=== PATIENT | female | born 1950 | race African-American/Black ===

== ENCOUNTER 2023-12-08 15:20 | Emergency (ER) | payer MEDICARE, MEDICAID ==
[~2023-12-08] VITALS: Ht 160 cm; Wt 52.0 kg
[~2023-12-08 15:20] MED LIST: ASPI-1406 MT; CLOP-31 MT; LIP40 MT
[2023-12-08 15:47] VITALS: BP 145/70; PULSE 93; RESP 20; TEMP 97.6; O2SAT 100
[2023-12-08] MEDS ORDERED: AMOX1TAB16 MT (18:50)
== END 2023-12-08 19:04 | disposition home or self-care (01) ==
LOC: ER 15:20
DX: K05.10 Chronic gingivitis, plaque induced (principal); E78.00 Pure hypercholesterolemia, unspecified; I10 Essential (primary) hypertension; I25.2 Old myocardial infarction
CPT/HCPCS: 99283

== ENCOUNTER 2024-04-11 11:15 | Emergency (ER) | payer MEDICARE, MEDICAID ==
[~2024-04-11] VITALS: Ht 152.4 cm; Wt 55.0 kg
[~2024-04-11 11:15] MED LIST changes: +AMOX1TAB16 MT
[2024-04-11 11:23] VITALS: O2SAT 100
[2024-04-11 11:50] LABS: BASOPHILS % 0.3 % (0.0-2.0); EOSINOPHILS % 0.3 % (0.0-5.0); HEMATOCRIT. 32.2 % (36.0-48.0); HEMOGLOBIN. 10.2 g/dL (12.0-16.0); LYMPHOCYTES % 12.2 % (20.0-50.0); MEAN CORPUSCULAR HEMOGLOBIN 27.9 pg (28.0-32.0); MEAN CORPUSCULAR HGB CONC 31.6 g/dL (31.0-37.0); MEAN CORPUSCULAR VOLUME 88.3 fL (81.0-99.0); MEAN PLATELET VOLUME 6.7 fl (7.4-10.4); MONOCYTES % 5.6 % (2.0-8.0); NEUTROPHILS % 81.6 % (40.0-76.0); PLATELET 447 x1000/uL (130-400); RED BLOOD CELL COUNT 3.65 mill/uL (4.2-5.4); RED CELL DISTRIBUTION WIDTH 14.8 % (11.6-14.6); WHITE BLOOD COUNT 4.2 x1000/uL (4.5-11.0)
[2024-04-11 12:02] LABS: CARBON DIOXIDE 28 mEq/L (21-32); CHLORIDE 103 mEq/L (98-107); POTASSIUM 4.3 mEq/L (3.5-5.1); SODIUM 133 mEq/L (136-145)
[2024-04-11 12:03] LABS: CALCIUM 8.7 mg/dL (8.7-10.4)
[2024-04-11 12:07] LABS: GLUCOSE 99 mg/dL (70-105)
[2024-04-11 12:08] LABS: TROPONIN I HIGH SENSITIVITY 17 ng/L (3.0-34); UREA NITROGEN BLOOD 7 mg/dL (9-23)
[2024-04-11 12:09] LABS: ALANINE AMINOTRANSFERASE 42 IU/L (10-49); ALBUMIN 3.4 g/dL (3.2-4.8); ASPARTATE AMINOTRANSFERASE 94 IU/L (<34)
[2024-04-11 12:10] LABS: BILIRUBIN DIRECT 0.1 mg/dL (<=3.0); BILIRUBIN TOTAL 0.3 mg/dL (0.1-1.0); PROTEIN TOTAL 10.1 g/dL (6.0-8.3)
[2024-04-11] MEDS: ONDANSETRON 4MG ODT PO ONE (12:48)
[2024-04-11] MEDS: MAGNESIUM/ALUMINUM HYDROXIDE/SIMETHICONE 30ML UDC PO ONE (12:48)
[2024-04-11 14:01] LABS: CLARITY URINE CLEAR (CLEAR); COLOR URINE YELLOW (YELLOW); GLUCOSE URINE NEGATIVE (NEGATIVE); KETONES URINE NEGATIVE (NEGATIVE); LEUKOCYTE ESTERASE URINE 2+ (NEGATIVE); NITRITE URINE NEGATIVE (NEGATIVE); OCCULT BLOOD URINE NEGATIVE (NEGATIVE); PH URINE 7.5 (4.5-8.0); PROTEIN URINE NEGATIVE (NEGATIVE); SPECIFIC GRAVITY URINE 1.004 (1.005-1.030)
[2024-04-11 14:29] LABS: BACTERIA URINE FEW; RBC URINE NONE SEEN /hpf (0-2); SQUAMOUS EPITHELIAL CELL URINE RARE /lpf (RARE/1+); YEAST URINE NONE SEEN
[2024-04-11] MEDS ORDERED: CEPH500C2 MT (14:48)
[2024-04-11 16:53] VITALS: BP 139/61; PULSE 95; RESP 18; TEMP 36.78072; O2SAT 100
== END 2024-04-11 16:55 | disposition home or self-care (01) ==
LOC: ER 11:15
DX: R11.0 Nausea (principal); N39.0 Urinary tract infection, site not specified; E78.00 Pure hypercholesterolemia, unspecified; I25.2 Old myocardial infarction; I10 Essential (primary) hypertension; Z79.82 Long term (current) use of aspirin; Z79.899 Other long term (current) drug therapy
CPT/HCPCS: 99284; 74176; 80076; 80048; 81003; 83690; 85025; 84484; 36415; 93005; Q0162